=== PATIENT | female | born 1955 | race Caucasian/White ===

== ENCOUNTER 2021-04-27 12:09 | Day surgery (SDC) | payer OTHER ==
[2021-04-26 16:34] VITALS: BMI 30.1
[2021-04-27] MEDS ORDERED: Fentanyl 100 MCG/2 ML VIAL ONE ×5 (13:28→16:41)
[2021-04-27] MEDS ORDERED: Midazolam HCl 2 mg/2 ml Vial ONE (13:35)
[2021-04-27] MEDS ORDERED: Ondansetron PF 4 MG/2 ML Vial ONE (13:56)
[2021-04-27] MEDS ORDERED: PROPOFOL 200 MG/20 ML VIAL ONE (13:56)
[2021-04-27] MEDS ORDERED: Dexamethasone 20 MG/5 ML VIAL ONE (13:56)
[2021-04-27] MEDS ORDERED: Labetalol HCl 100 MG/20 ML VIAL ONE (15:54)
[2021-04-27] MEDS ORDERED: hydrALAZINE 20 MG/ML VIAL ONE (16:32)
[2021-04-27] MEDS ORDERED: HYDROcodone/Acetaminophen 5/325 mg Tablet ONE (18:03)
== END 2021-04-27 18:50 | disposition home or self-care (01) ==
LOC: SDC 12:09
PROVIDERS: ATTEND Orthopaedic Surgery
PROC: 0PSJXZZ Reposition Left Radius, External Approach (ICD-10-PCS; principal; 2021-04-27)
PROC: 0PSH04Z Reposition Right Radius with Internal Fixation Device, Open Approach (ICD-10-PCS; principal; 2021-04-27)
DX: S52.571A Other intraarticular fracture of lower end of right radius, initial encounter for closed fracture (principal); S52.532A Colles' fracture of left radius, initial encounter for closed fracture; W01.0XXA Fall on same level from slipping, tripping and stumbling without subsequent striking against object, initial encounter
CPT/HCPCS: 76000; C1713; J0360; J0690; J1100; J2250; J2405; J2704; J3010